=== PATIENT | female | born 1975 | race Hispanic/Latino ===

== ENCOUNTER → 2025-06-26 | Outpatient (CLI) | payer BC ==
--- NOTE | 2025-07-01 08:10 | HMCIMG ---
Right BREAST ULTRASOUND: CLINICAL HISTORY: 49-year-old female with a right breast lump with the mammogram. Patient has a history of maternal breast cancer. Finding: Real-time examination of the [right/left] breast demonstrates heterogeneous echotexture throughout the breast right breast has a 10:00 spiculated mass with increased vascularity measuring 2. By 1.7 cm. The right breast at 4:00 there is a complex lesion seen very superficial measuring 1.4 x 0.9 x 1.3 cm. The remaining right breast has lesion identified. There are 2 axillary lymph nodes seen on the right side measuring 2.3 x 0.8 x 2.5 cm second lymph node measuring 2.3 x 0.8 x 1.9 cm. IMPRESSION: Right breast at 10:00 there is a spiculated lesion with increased vascularity measuring 2.4 x 1.8 x 1.7 cm which is amenable for ultrasound-guided biopsy for histological sampling. Right breast at 4:00 there is a complex superficial cyst measuring 1.4 x 0.9 x 1.3 cm. FINAL ASSESSMENT: ACR: BI-RAD -4. Suspicious: Finding(s) without all the characteristics morphology of breast cancer but indicatingadefine probability of being malignant: biopsy should be considered.
--- NOTE | 2025-07-01 08:15 | HMCIMG ---
DIGITAL right breast DIAGNOSTIC MAMMOGRAM Technique: The digital mammographic examination of right breast in craniocaudal, mediolateral oblique views along with CAD was obtained. History: This is a 49 years year-old female 2 para2 Ab0 . Patient has no family history of breast cancer. Patient has no complaint Reference:Prior mammogram from 04/04/2025, 09/06/2023, 11/09/2020 and 11/01/2017 are available.. Breast composition: Breast composition C: The breasts are heterogeneously dense, which may obscure small masses. Finding: The digital mammographic examination of right breast in craniocaudal and mediolateral oblique view along with CAD demonstrates to be moderately heterogeneously dense. The right breast at 10:00 there is a spiculated mass which is also seen on the ultrasound measuring 2.1 x 2.2 cm. The right breast in the superficial region there is a round density measuring 1.4 x 1.4 cm.. There is no evidence of any dendritic mass, cluster microcalcification or architectural distortion. The retromammary fat appears to be normal. IMPRESSION: Right breast at 10:00 there is a irregular ill-defined solid lesion which is also seen in the ultrasound which is amenable for ultrasound-guided biopsy There is a superficial lesion seen in right breast at 4:00 which appears to possibly on ultrasound to be a sebaceous cyst.. FINAL ASSESSMENT: ACR: BI-RAD -4. Suspicious: Finding(s) without all the characteristics morphology of breast cancer but indicatingadefine probability of being malignant: biopsy should be considered. NOTE: IF A WORK-UP OF THIS PATIENT LEADS TO A BIOPSY, PLEASE FORWARD A COPY OF THE PATHOLOGY REPORT TO OUR OFFICE REQUIRED BY [facility] EFFECTIVE AUGUST 06, 1994. A NEGATIVE MAMMOGRAM SHOULD NOT PRECLUDE BIOPSY OF A CLINICALLY PALPABLE SUSPICIOUS MASS, 10% OF BREAST CANCERS ARE MAMMOGRAPHICALLY OCCULT. THIS MAMMOGRAPHY FACILITY IS FULLY ACCREDITED BY THE FOOD AND DRUG [employer] (FDA). THANK YOU FOR THIS REFERRAL.
== END | disposition home or self-care (01) ==
LOC: RAH 07:50
PROVIDERS: ATTEND Obstetrics & Gynecology
DX: N60.01 Solitary cyst of right breast (principal); N63.11 Unspecified lump in the right breast, upper outer quadrant; N63.12 Unspecified lump in the right breast, upper inner quadrant; N64.89 Other specified disorders of breast; R92.2 Inconclusive mammogram; R92.331 Mammographic heterogeneous density, right breast; Z85.3 Personal history of malignant neoplasm of breast
CPT/HCPCS: 76641; 77065

== ENCOUNTER → 2025-07-30 | Outpatient (CLI) | payer BC ==
[~2025-07-30] MED LIST: LIDOCAINE HCL 1% 20 ML VIAL ONE
[2025-07-30 10:22] LABS: INR <= 0.93 (0.85-1.15)
--- NOTE | 2025-07-30 11:35 | NUR ---
ULTRASOUND GUIDED RIGHT BREAST NODULE BX PROCEDURE PERFORMED BY DR. SCOTT TRINIDAD. PUNCTURE SITE RIGHT BREAST AT 10 O'CLOCK AND PATIENT TOLERATED PROCEDURE WELL. SPECIMEN X4 COLLECTED AND SENT TO LAB. END OF PROCEDURE AT 1125. BIOPSY NEEDLE REMOVED AND BAND-AID APPLIED- NO BLEEDING NOTED. DISCHARGE INSTRUCTIONS GIVEN TO PATIENT AND VERBALIZED UNDERSTANDING. MAMMO OF RIGHT BREAST TO FOLLOW FOR VERIFICATION OF PLACEMENT OF TISSUE MARKER. PATIENT IS AMBULATORY AND DISCHARGED IN STABLE CONDITION WITH NO C/O PAIN.
--- NOTE | 2025-07-30 13:50 | HMCIMG ---
DIGITAL right DIAGNOSTIC MAMMOGRAM postbiopsy with placement of a biopsy marker. Technique: The digital mammographic examination of right breast in craniocaudal, mediolateral oblique views along with CAD was obtained. History: This is a 49 years year-old female who underwent right breast biopsy at 10:00 near the chest wall for placement of biopsy marker. Reference:Prior mammogram from 06/26/2025, 04/04/2025, 09/06/2023, 11/09/2020 and 11/01/2017 are available.. Breast composition: Breast composition C Finding: The digital mammographic examination of right breast in craniocaudal and mediolateral oblique view along with CAD demonstrates right breast lesion at 10:00 near the chest wall near the axillary tail has a biopsy marker in satisfactory position.. IMPRESSION: Biopsy marker in satisfactory position Report is pending.. FINAL ASSESSMENT: Post-procedure Mammogram for Marker Placement. NOTE: IF A WORK-UP OF THIS PATIENT LEADS TO A BIOPSY, PLEASE FORWARD A COPY OF THE PATHOLOGY REPORT TO OUR OFFICE REQUIRED BY [facility] EFFECTIVE AUGUST 06, 1994. A NEGATIVE MAMMOGRAM SHOULD NOT PRECLUDE BIOPSY OF A CLINICALLY PALPABLE SUSPICIOUS MASS, 10% OF BREAST CANCERS ARE MAMMOGRAPHICALLY OCCULT. THIS MAMMOGRAPHY FACILITY IS FULLY ACCREDITED BY THE FOOD AND DRUG [employer]MIN[employer]RATION (FDA). THANK YOU FOR THIS REFERRAL.
--- NOTE | 2025-07-30 15:07 | HMCIMG ---
PERCUTANEOUS ULTRASOUND-GUIDED BIOPSY OF right breast MASS: At 10:00 and placement of a biopsy marker. CLINICAL HISTORY: This is a 49 [id number] female with right breast mass at 10:00 for ultrasound-guided biopsy. The risk and benefit was explained to the patient. The risks include bleeding and infection. The patient consented to the procedure. Procedure: Under ultrasound guidance right breast lesion at 10:00 was localized. After sterile prep and drape, 1% Xylocaine was used for local anesthetic. Using a 14-gauge Bard gun a total of 4 core biopsy was obtained. The specimen was sent for histology and cell block. Postbiopsy a biopsy marker was placed in the right breast lesion at 10:00. Patient tolerated procedure well. IMPRESSION: 1. PERCUTANEOUS ULTRASOUND-GUIDED BIOPSY OF right breast mass at 10:00 WITH SPECIMENS SENT FOR HISTOLOGY AND CELL BLOCK. THE PATIENT TOLERATED PROCEDURE WELL. PATHOLOGY REPORT IS PENDING. Patient also had a placement of a biopsy marker 2. PATIENT IS TO HAVE A POST BIOPSY MARKER PLACEMENT UNILATERAL right BREAST MAMMOGRAM.
== END | disposition home or self-care (01) ==
LOC: RAH 09:04
PROVIDERS: ATTEND Obstetrics & Gynecology
DX: R92.333 Mammographic heterogeneous density, bilateral breasts (principal); C50.911 Malignant neoplasm of unspecified site of right female breast; N63.12 Unspecified lump in the right breast, upper inner quadrant; R92.2 Inconclusive mammogram; Z79.01 Long term (current) use of anticoagulants; Z79.899 Other long term (current) drug therapy
CPT/HCPCS: 19083; 77065; 85610; 85730; 88361; 36415; 88305; A4215 ×2